=== PATIENT | female | born 1980 | race American Indian/Alaskan Native ===

== ENCOUNTER 2025-04-10 09:14 | Outpatient (CLI) | payer OTHER ==
[2025-04-12 02:06] LABS: Chlamydia Trachomatis, NAA Negative (Negative); Neisseria gonorrhoeae, NAA Negative (Negative)
== END 2025-04-10 17:00 | disposition home or self-care (01) ==
LOC: LAB 09:14
PROVIDERS: ATTEND Obstetrics & Gynecology
DX: Z11.3 Encounter for screening for infections with a predominantly sexual mode of transmission (principal)
CPT/HCPCS: 36415; 86703; 86780; 87340